=== PATIENT | female | born 1940 | race Caucasian/White ===

== ENCOUNTER → 2017-07-19 11:44 | Outpatient (CLI) | payer MEDICARE, BC, SELFPAY ==
--- NOTE | 2017-07-19 12:01 | CT_ITS ---
CT head/brain wo con HISTORY: ITS.REASON: HEADACHE,DIZZINESS ORDERING PHYSICIAN: Karley Pacheco PATIENT AGE: 76 years COMPARISON: None TECHNIQUE: Axial images obtained without contrast. Brain and bone windows reviewed. All CT scans at the facility use one or more dose reduction, viz: automated exposure control; ma/kV adjustment per patient size (including targeted exams where dose is matched to indication; i.e. head); or iterative reconstruction technique. FINDINGS: No midline shift, mass effect, intracranial hemorrhage, hydrocephalus, or extra-axial fluid collection is evident. Mild involutional changes of age The calvarium has an unremarkable appearance. No mastoid effusion. No sinus air-fluid levels.. IMPRESSION: No acute finding
== END ==
PROVIDERS: PCP Nurse Practitioner Family; Visit Provider Nurse Practitioner Family
DX: R51 Headache (principal); R42 Dizziness and giddiness
CPT/HCPCS: 70450

== ENCOUNTER → 2017-11-15 12:40 | Outpatient (CLI) | payer MEDICARE, BC, SELFPAY | PROVIDERS: Family Provider Nurse Practitioner; PCP Nurse Practitioner Family; Visit Provider Family Medicine | DX: Z71.3 Dietary counseling and surveillance (principal); E11.65 Type 2 diabetes mellitus with hyperglycemia | CPT/HCPCS: 97802 ==

== ENCOUNTER → 2018-05-08 08:19 | Outpatient (CLI) | payer MEDICARE, BC, SELFPAY ==
--- NOTE | 2018-05-08 08:23 | US_ITS ---
US soft tissue head and neck CLINICAL INDICATION: Palpable nodule in left side of neck ITS.REASON: LYMPHADENOPATHY ORDERING PHYSICIAN: Karley Pacheco PATIENT AGE: 77 years Comparison: None FINDINGS: Ultrasound performed of the left aspect of the neck showing no obvious adenopathy or cystic lesions. The carotid artery is noted in the area of the palpable abnormality. The submandibular and parotid glands have an unremarkable appearance IMPRESSION: 1. The carotid artery is at the area of the patient's palpable abnormality. 2. Otherwise negative ultrasound the neck
== END ==
PROVIDERS: PCP Nurse Practitioner Family; Visit Provider Nurse Practitioner Family
DX: R59.0 Localized enlarged lymph nodes (principal)
CPT/HCPCS: 76536

== ENCOUNTER → 2018-05-17 12:29 | Outpatient (CLI) | payer MEDICARE, BC, SELFPAY ==
--- NOTE | 2018-05-17 | CI_ITS ---
Cerebrovascular Exam Indications: 785.9 Bruit. IMPRESSIONS 1. The bilateral vertebral arteries are patent with normal antegrade flow. 2. Study suggests less than 20% stenosis involving the right internal carotid artery. 3. Study suggests less than 20% stenosis involving the left internal carotid artery. 4. Tortuous carotid arteries seen bilaterally. History: Risk factors: Hypertension. Diabetes mellitus. Carotid duplex study. Complete study and Doppler flow study including spectral analysis, color and terrell scale imaging. Height: Height: 157.5cm. Height: 62in. Weight: Weight: 56.2kg. Weight: 123.7lb. Body mass index: BMI: 22.7kg/m^2. Body surface area: BSA: 1.57m^2. Location: Vascular laboratory. Patient status: Outpatient. Tables: Arterial flow: + +--------+--------+ Location V sys V ed + +--------+--------+ Right CCA - proximal 73.8cm/s 10.7cm/s + +--------+--------+ Right CCA - distal 74.9cm/s 15.6cm/s + +--------+--------+ Right ECA 86.8cm/s 10.4cm/s + +--------+--------+ Right ICA - proximal 49.8cm/s 8.5cm/s + +--------+--------+ Right ICA - mid 48.2cm/s 14.9cm/s + +--------+--------+ Right ICA - distal 59.5cm/s 15.4cm/s + +--------+--------+ Right vertebral 61.1cm/s 9.8cm/s + +--------+--------+ Left CCA - proximal 75.4cm/s 11.5cm/s + +--------+--------+ Left CCA - distal 60.8cm/s 12.6cm/s + +--------+--------+ Left ECA 60.7cm/s 8.5cm/s + +--------+--------+ Left ICA - proximal 74.1cm/s 19.3cm/s + +--------+--------+ Left ICA - mid 64.8cm/s 18.9cm/s + +--------+--------+ Left ICA - distal 68.2cm/s 17.4cm/s + +--------+--------+ Left vertebral 35.4cm/s 11.6cm/s + +--------+--------+ Velocity ratios: + + + + + + Right, V sys Right, V ed Left, V sys Left, V ed + + + + + + Max ICA/dist CCA 0.79 0.99 1.22 1.53 + + + + + + (Report amended ) Electronically signed by: Edy Miller [id number]
== END ==
PROVIDERS: PCP Nurse Practitioner Family; Visit Provider Nurse Practitioner Family
DX: R09.89 Other specified symptoms and signs involving the circulatory and respiratory systems (principal)
CPT/HCPCS: 93880

== ENCOUNTER → 2019-11-23 11:30 | Outpatient (CLI) | payer MEDICARE, BC, SELFPAY ==
--- NOTE | 2019-11-23 11:40 | XR_ITS ---
PROCEDURE: XR SHOULDER RT MIN 2V CLINICAL INDICATION: RT SHOULDER PAIN,DECREASED ROM COMPARISON: No exams were available for comparison FINDINGS: Moderate osteoarthritic changes are present at the acromioclavicular joint and glenohumeral joint. No fracture or dislocation. Surgical clips are present in the right axilla. No lytic or blastic change. Other findings:None. 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
== END ==
PROVIDERS: PCP Family Medicine; Visit Provider Nurse Practitioner Family
DX: M25.511 Pain in right shoulder (principal); M25.611 Stiffness of right shoulder, not elsewhere classified
CPT/HCPCS: 73030

== ENCOUNTER → 2020-07-24 15:03 | Outpatient (CLI) | payer MEDICARE, BC, SELFPAY | PROVIDERS: PCP Family Medicine; Visit Provider Nurse Practitioner Family | DX: Z20.822 Contact with and (suspected) exposure to COVID-19 (principal) | CPT/HCPCS: U0003 ==

== ENCOUNTER 2020-09-29 04:38 | Emergency (ER) | payer MEDICARE, BC, SELFPAY ==
[2020-09-29 04:49] VITALS: BP 160/76; PULSE 75; RESP 16; TEMP 36.8; O2SAT 97; BMI 20.5
--- NOTE | 2020-09-29 04:53 | ECG_ITS ---
APPROVED REPORT Exam: Resting ECG HR:75 bpm ECG Measurements Heart Rate 75 AXES QRSd 84 QRS 30 QT 418 T 57 QTc 466 Conclusion Atrial fibrillation Septal infarct, age undetermined Abnormal ECG Electronically signed by : Silvino Dixon MD 10/01/2020 11:50:22
--- NOTE | 2020-09-29 04:57 | CT_ITS ---
PROCEDURE INFORMATION: Exam: CT Abdomen And Pelvis With Contrast Exam date and time: 09/29/2020 4:57 AM Age: 79 years old Clinical indication: Abdominal pain; Flank; Right; Prior surgery; Surgery date: 6+ months; Surgery type: Gb, appendix, tubal ligation, hernia; Additional info: Flank pain/rt side pain urinary frequency TECHNIQUE: Imaging protocol: Computed tomography of the abdomen and pelvis with contrast. Radiation optimization: All CT scans at this facility use at least one of these dose optimization techniques: automated exposure control; mA and/or kV adjustment per patient size (includes targeted exams where dose is matched to clinical indication); or iterative reconstruction. Contrast material: ISOVUE; Contrast volume: 75 ml; Contrast route: IV; COMPARISON: CR XR CHEST PORTABLE 09/29/2020 5:38 AM FINDINGS: Liver: There is a focal lesion seen inferiorly in the right lobe of the liver this demonstrates peripheral nodular enhancement and measures 2.6 x 3.0 cm in diameter. A 2nd lesion in the right lobe measures 1.7 x 2.5 cm in and Ping is homogeneously. Gallbladder and bile ducts: The patient is status post cholecystectomy. Pancreas: Normal. No ductal dilation. Spleen: Normal. No splenomegaly. Adrenal glands: Normal. No mass. Kidneys and ureters: Normal. No hydronephrosis. Stomach and bowel: Moderate stool is seen throughout the colon. Appendix: No evidence of appendicitis. Intraperitoneal space: Unremarkable. No free air. No significant fluid collection. Vasculature: Coronary atherosclerosis is present. Lymph nodes: Unremarkable. No enlarged lymph nodes. Urinary bladder: Unremarkable as visualized. Reproductive: The patient is status post hysterectomy. There is laxity of the pelvic floor. Bones/joints: Unremarkable. No acute fracture. Soft tissues: The patient is status post prior abdominal wall surgery. IMPRESSION: 1. No acute process to explain the patient's right flank pain. 2. There are 2 indeterminate right hepatic lesions 1 is likely a hemangioma the other is indeterminate but could also be a hemangioma, correlation with prior imaging if available is recommended if not recommended and nonemergent MRI is the best test for further characterization of this likely benign lesion. 3. Moderate retained stool throughout the colon. 4. Coronary atherosclerosis.
--- NOTE | 2020-09-29 04:57 | XR_ITS ---
PROCEDURE INFORMATION: Exam: XR Chest Exam date and time: 09/29/2020 4:57 AM Age: 79 years old Clinical indication: Other: Palpatations; Additional info: Palpitations TECHNIQUE: Imaging protocol: XR of the chest. Views: 2 views. COMPARISON: CR CXR CHEST(2 VIEWS-NOT PORTABLE) 04/25/2015 2:53 PM FINDINGS: Lungs: The lungs are hyperinflated consistent with COPD. Pleural spaces: Unremarkable. No pleural effusion. No pneumothorax. Heart/Mediastinum: Heart is prominent. Bones/joints: Unremarkable. Soft tissues: The patient is status post right axillary lymph node dissection. IMPRESSION: Stable exam. Hyperinflation consistent with COPD with mild cardiomegaly.
[2020-09-29 05:19] LABS: Microscopic, Urine URINE MICROSCOPIC (MICROSCOPIC)
[2020-09-29 05:22] LABS: Basophils # 0.1 K/mm3 (0-0.2); Basophils % 0.9 % (0.1-2.0); Eosinophils # 0.1 K/mm3 (0.0-0.4); Eosinophils % 1.5 % (0.1-12.0); Hematocrit 35.1 % (37.0-47.0); Hemoglobin 11.4 g/dL (12.2-16.2); Lymphocytes # 2.1 K/mm3 (0.7-4.5); Lymphocytes % 23.4 % (10-50); Mean Corpuscular HGB Conc 32.4 g/dL (31.8-35.4); Mean Corpuscular Hemoglobin 24.5 pg (27.0-31.2); Mean Corpuscular Volume 75.6 fl (81-99); Mean Platelet Volume 9.6 fl (7.4-10.4); Monocytes # 0.4 K/mm3 (0.1-1.0); Monocytes % 4.6 % (1.7-9.3); Neutrophils # 6.4 K/mm3 (1.8-7.8); Neutrophils % 69.7 % (37.0-80.0); Platelet Count 225 K/mm3 (142-424); Red Blood Count 4.64 M/mm3 (4.20-5.40); Red Cell Distribution Width 17.9 % (11.5-17.5); White Blood Count 9.2 K/mm3 (4.8-10.8)
[2020-09-29 05:23] LABS: Appearance,Urine CLEAR (Clear); Bilirubin,Urine Negative (Negative); Blood, Urine TRACE-I (Negative); Color,Urine YELLOW (Yellow); Glucose,Urine (UA) Negative (Negative); Ketones,Urine Negative (Negative); Leukocyte Esterase,Urine 1+ (Negative); Nitrate,Urine Negative (Negative); Protein,Urine Negative (Negative); Specific Gravity, Urine 1.015 (1.005-1.030); Urobilinogen,Urine 0.2 EU/dl (0.2)
[2020-09-29 05:30] VITALS: BP 171/79; PULSE 68; O2SAT 96
[2020-09-29 05:33] LABS: Amylase 32 U/L (30-110); Anion Gap 11.9 mEq/L (5-15); Blood Urea Nitrogen 15 mg/dl (7-17); Calcium 9.1 mg/dl (8.4-10.2); Carbon Dioxide 23 mmol/L (22.0-30.0); Chloride 104 mmol/L (98-107); Creatinine Clearance Estimated 37 mL/min (50-200); Estimated Glomerular Filt Rate 119 ml/min (>60); GFR (African American) 144 ML/MIN (>60); Glucose 176 mg/dl (74-100); Lipase 69 U/L (23-300); Potassium 3.9 mmoL/L (3.5-5.1); Sodium 135 mmol/L (136-145)
[2020-09-29 05:49] LABS: Troponin I < 0.01 ng/ml (0.00-0.034)
[2020-09-29 05:50] LABS: T4 (Thyroxine) 16.4 ug/dl (5.53-11.0)
[2020-09-29 06:04] LABS: Thyroid Stimulating Hormone 3.08 uIU/mL (0.465-4.68)
[2020-09-29 06:15] LABS: Coronavirus 19, PCR Not Detected (NotDetected); Influenza A, PCR Not Detected (NotDetected); Influenza B, PCR Not Detected (NotDetected)
[2020-09-29 06:19] VITALS: BP 162/89; PULSE 75; RESP 18; O2SAT 100
[2020-09-29 06:30] VITALS: BP 169/87; PULSE 70; RESP 16; O2SAT 98
[2020-09-29 06:34] LABS: C-Reactive Protein 1.1 mg/L (0-4)
--- NOTE | 2020-09-29 06:35 | HMH.EDBACK ---
ED Disposition Clinical Impression: UTI (urinary tract infection) Qualifiers: Urinary tract infection type: site unspecified Hematuria presence: without hematuria Qualified Code(s): N39.0 - Urinary tract infection, site not specified Disposition: Home, Self-Care Condition on Discharge: Good Instructions: DI for Urinary Tract Infection (UTI) Additional Instructions: use meds and see pcp for follow up and culture results Prescriptions: levoFLOXacin [Levaquin 500mg tab] 500 mg PO DAILY #7 tab Transmission Status: Pending to [id number] Referrals: Duke Boland MD [Primary Care Provider] - - Critical Care Critical Care Time: No Attestation: On 09/29/20, the high probability of a clinically significant, sudden or life threatening deterioration of the following system(s) required my full and direct attention, intervention and personal management. The time I documented below is in addition to time spent performing reported procedures but includes the following listed in this critical care notation. Medical Decision Making - Medical Records Medical records reviewed: Yes: I reviewed the patient's medical records. - Reginaldo Inquiry Pt receiving controlled substance: No Vital Signs: 09/29/20 04:49 09/29/20 05:30 Temperature 98.2 F Temperature Source Oral Pulse Rate 68 Pulse Rate [Right Brachial] 75 Respiratory Rate 16 Blood Pressure 171/79 H Blood Pressure [Right Arm] 160/76 H Blood Pressure Mean [Right Arm] 104 Blood Pressure Source [Right Arm] Automatic Cuff Blood Pressure Position [Right Arm] Sitting 02 Sat by Pulse Oximetry 97 96 Oxygen Delivery Method Room Air Room Air - Lab Data Lab results reviewed: Yes: I reviewed the patient's lab results. Lab Results 09/29/20 05:00: WBC 9.2, RBC 4.64, Hgb 11.4 L, Hct 35.1 L, MCV 75.6 L, MCH 24.5 L, MCHC 32.4, RDW 17.9 H, Plt Count 225, MPV 9.6, Neut % (Auto) 69.7, Lymph % (Auto) 23.4, [place] % (Auto) 4.6, Eos % (Auto) 1.5, Baso % (Auto) 0.9, Neut # (Auto) 6.4, Lymph # (Auto) 2.1, [place] # (Auto) 0.4, Eos # (Auto) 0.1, Baso # (Auto) 0.1 09/29/20 05:00: Sodium 135 L, Potassium 3.9, Chloride 104, Carbon Dioxide 23, Anion Gap 11.9, BUN 15, Creatinine 0.50 L, Estimated Creat Clear 37, Estimated GFR 119, Est GFR ( Amer) 144, Glucose 176 H, Calcium 9.1, Troponin I < 0.01, Amylase 32, Lipase 69, TSH 3.08, Thyroxine (T4) 16.4 H 09/29/20 05:00: C-Reactive Protein 1.1 09/29/20 05:05: Urine Color Yellow, Urine Appearance Clear, Urine pH 8.0, Ur Specific [place] 1.015, Urine Protein Negative, Urine Glucose (UA) Negative, Urine Ketones Negative, Urine Blood Trace-i, Urine Nitrate Negative, Urine Bilirubin Negative, Urine Urobilinogen 0.2, Ur Leukocyte Esterase 1+ A, Urine RBC 3-5, Urine WBC 10-20 Result diagrams: 09/29/20 05:00 09/29/20 05:00 Orders (Tests/Meds): ED MEDICATIONS Generic Name Dose Route Start Last Admin Trade Name Freq PRN Reason Stop Dose Admin Sodium Chloride 1,000 mls @ 999 mls/hr 09/29/20 05:15 09/29/20 05:08 Sod Chlor 0.9% 1000ml Bag IV 09/29/20 06:15 999 mls/hr .Q1H1M GIANA Administration Discontinued Medications Generic Name Dose Route Start Last Admin Trade Name Freq PRN Reason Stop Dose Admin Iopamidol 75 ml 09/29/20 06:04 09/29/20 06:10 Iopamidol-370 (76%);100ml Bottle IV 09/29/20 06:05 75 ml ONCE ONE Administration Sodium Chloride 10 ml 09/29/20 06:04 09/29/20 06:10 Sodium Chloride 0.9% 10ml Syr (Rad Only) IV 09/29/20 06:05 10 ml ONCE ONE Administration ORDERS Category Date Time Status ESR [Erythrocyte Sedimentation Rate] Stat Lab 09/29/20 05:00 Received Rapid PCR Covid and Flu A/B Stat Lab 09/29/20 05:00 Received Troponin I Q3H Lab 09/29/20 08:00 Ordered Troponin I Q3H Lab 09/29/20 11:00 Ordered Urine Culture Stat Micro 09/29/20 05:05 Received - Radiology Data #1 Image(s): Chest Image Reviewed: Yes I reviewed the patient's radiology image Prelimi
[2020-09-29 06:37] LABS: Erythrocyte Sedimentation Rate 19 mm/hr (0-30)
[2020-09-29 06:56] VITALS: BP 169/87; PULSE 72; RESP 18; TEMP 36.9; O2SAT 98
== END 2020-09-29 07:06 | disposition home or self-care (01) ==
PROVIDERS: Emergency Provider Emergency Medicine; PCP Family Medicine
DX: N30.00 Acute cystitis without hematuria (principal); Z20.822 Contact with and (suspected) exposure to COVID-19; I25.10 Atherosclerotic heart disease of native coronary artery without angina pectoris; E11.9 Type 2 diabetes mellitus without complications; K21.9 Gastro-esophageal reflux disease without esophagitis; E78.5 Hyperlipidemia, unspecified; I10 Essential (primary) hypertension; E03.9 Hypothyroidism, unspecified; Z79.899 Other long term (current) drug therapy
CPT/HCPCS: 71046; 74177; 80048; 81001; 82150; 83690; 84436; 84443; 84484; 85025; 85651; 86140; 87086; 87088; 87186; 93005; 96365; 96366; 99284; Q9967; U0003

== ENCOUNTER → 2020-10-06 10:32 | Outpatient (CLI) | payer MEDICARE, BC, SELFPAY ==
--- NOTE | 2020-10-06 10:46 | XR_ITS ---
PROCEDURE: XR LUMBAR SPINE MIN 4V CLINICAL INDICATION: RT FLANK PAIN TO R/O COMPRESSION FX COMPARISON: CT CT ABDOMEN PELVIS W CON from 09/29/2020 FINDINGS: There is mild lumbar scoliosis convex left. Multilevel lumbar spondylosis is present. Endplate osteophytes are present at L1-L2 and L3. there is degenerative disc disease at from T12-S1 worse at T12-L1 and L1-L2. There is 3 mm anterolisthesis of L4 on L5 and 3 mm retrolisthesis of L3 on L4 and L2 on L3. No acute fracture or dislocation is evident. Postsurgical changes are present with clips in the right upper quadrant and multiple surgical tacks in the left lower quadrant. There is diffuse vascular calcification. Degenerative changes are present involving both hips.. IMPRESSION: Multilevel lumbar spondylosis as detailed above. No acute fracture Dictated by: Mohit Tam MD 10/06/2020 12:13 Mohit Tam MD in [place] 10/06/2020 12:13
[2020-10-06 11:58] LABS: Blood Urea Nitrogen 14 mg/dl (7-17); Estimated Glomerular Filt Rate 96 ml/min (>60); GFR (African American) 117 ML/MIN (>60)
== END ==
PROVIDERS: Visit Provider Family Medicine
DX: R10.11 Right upper quadrant pain (principal); R10.9 Unspecified abdominal pain
CPT/HCPCS: 36415; 72110; 82565; 84520

== ENCOUNTER → 2020-10-07 17:26 | Outpatient (CLI) | payer MEDICARE, BC, SELFPAY ==
[2020-10-07 17:29] LABS: Adenovirus F 40/41, stool Not Detected (NotDetected); Astrovirus Not Detected (NotDetected); Campylobacter Not Detected (NotDetected); Clostridium Difficile A/B, PCR Not Detected (NotDetected); Cryptosporidium Not Detected (NotDetected); Cyclospora Cayetanesis Not Detected (NotDetected); Entamoeba histolytica Not Detected (NotDetected); Enteroaggregative E coli Not Detected (NotDetected); Enteropathogenic E coli Not Detected (NotDetected); Enterotoxigenic E coli Not Detected (NotDetected); Giardia lamblia Not Detected (NotDetected); Norovirus Not Detected (NotDetected); Plesimonas Shigalloides, PCR Not Detected (NotDetected); Rotavirus A Not Detected (NotDetected); Salmonella, PCR Not Detected (NotDetected); Sapovirus Not Detected (NotDetected); Shiga-like toxin E coli Not Detected (NotDetected); Shigella Enterovasive E coli Not Detected (NotDetected); Vibrio Cholerae Not Detected (NotDetected); Vibrio, PCR Not Detected (NotDetected); Yersinia Entercolitica, PCR Not Detected (NotDetected)
== END ==
PROVIDERS: Visit Provider Nurse Practitioner Family
DX: R19.7 Diarrhea, unspecified (principal)
CPT/HCPCS: 87506

== ENCOUNTER → 2020-10-13 09:33 | Outpatient (CLI) | payer MEDICARE, BC, SELFPAY ==
--- NOTE | 2020-10-13 09:36 | CT_ITS ---
PROCEDURE: CT ABDOMEN PELVIS W CON CLINICAL INDICATION: ABD PAIN Right upper quadrant pain COMPARISON: CT CT ABDOMEN PELVIS W CON from 09/29/2020 TECHNIQUE: IV Contrast: 75ML Isovue 370 Oral Contrast 450ml Redicat Axial images obtained with sagittal and coronal reformats. All CT scans at the facility use one or more dose reduction, viz: automated exposure control, ma/kV adjustment per patient size (including targeted exams where dose is matched to indication, i.e. head), or iterative reconstruction technique. FINDINGS: There is some mild scarring in the left lung base. There is cardiomegaly with coronary artery calcification with multi chamber enlargement. There is a small pericardial effusion with pericardium measuring 11 mm. Prior cholecystectomy with biliary ectasia. The spleen, adrenal glands, pancreas, and kidneys have an unremarkable appearance. Previously noted area of enhancement in the right hepatic lobe laterally and nodular area of enhancement in the right hepatic lobe inferiorly are once again noted. These may be due to hemangiomas and may be better evaluated with MRI. There is a moderate amount of retained colonic feces. No evidence of appendicitis or diverticulitis. Status post hysterectomy. Mild thoracolumbar curvature convex right. Osteoarthritic changes are present in the hips prior abdominal wall surgery. IMPRESSION: Overall no change with no acute finding. No change 2 right hepatic lobe lesion which may be due to hemangiomas. Nonacute findings as described above. Dictated by: Mohit Tam MD 10/14/2020 10:09 Mohit Tam MD in [place] 10/14/2020 10:09
== END ==
PROVIDERS: PCP Family Medicine; Visit Provider Family Medicine
DX: R10.11 Right upper quadrant pain (principal)
CPT/HCPCS: 74177; Q9967

== ENCOUNTER → 2020-11-07 11:00 | Outpatient (CLI) | payer MEDICARE, BC, SELFPAY ==
--- NOTE | 2020-11-07 11:04 | CT_ITS ---
PROCEDURE: CT ABDOMEN WO/W CON CLINICAL HISTORY: UPPER ABD PAIN COMPARISON: CT CT ABDOMEN PELVIS W CON from 09/29/2020 TECHNIQUE: Axial images obtained with sagittal and coronal reformats. All CT scans at the facility use one or more dose reduction, viz: automated exposure control, ma/kV adjustment per patient size (including targeted exams where dose is matched to indication, i.e. head), or iterative reconstruction technique. FINDINGS: There is cardiomegaly. There is mild thickening of the pericardium suggesting small pericardial effusion. Minimal atelectatic or fibrotic changes are present in the left lung base. There is a right breast prosthesis. Coronary artery calcifications Status post cholecystectomy. No biliary dilatation. Peripheral area of enhancement is present in the right hepatic lobe in 2 different areas inferiorly. The largest area measures 3 cm and shows peripheral enhancement which may be due to a hemangioma not significantly changed. The 2nd area of enhancement shows homogeneous enhancement. The spleen, adrenal glands, and pancreas has an unremarkable appearance. No renal or ureteral calculi. No renal mass. No hydronephrosis or ureteral dilatation. No intestinal obstruction or free air. There is a mild amount of retained colonic feces. There is a small amount fluid in the pelvis. The pelvis is incompletely imaged as the exam was performed as an abdomen without and with contrast. Degenerative changes thoracic lumbar junction of the spine. IMPRESSION: 1. No acute finding. 2. Two enhancing lesions of the liver the largest of which may represent a hemangioma not significantly changed measuring approximately 3 cm. The other area is of questionable etiology possibly due to flash filling hemangioma. These areas do not appear significantly changed. Characterization with MRI may be of further value. If that is not performed or the patient is not MRI compatible then three month follow-up is suggested to confirm short term stability. 3. Other nonacute findings as described above Dictated by: Mohit Tam MD 11/10/2020 07:45 Mohit Tam MD in [place] 11/10/2020 07:45
== END ==
PROVIDERS: PCP Family Medicine; Visit Provider Family Medicine
DX: R10.10 Upper abdominal pain, unspecified (principal)
CPT/HCPCS: 74170; Q9967

== ENCOUNTER 2020-11-13 20:05 | Emergency (ER) | payer MEDICARE, BC, SELFPAY ==
[2020-11-13 20:06] VITALS: BP 168/74; PULSE 97; RESP 19; TEMP 36.8; O2SAT 96; BMI 19.3
--- NOTE | 2020-11-13 20:26 | ECG_ITS ---
APPROVED REPORT Exam: Resting ECG HR:86 bpm ECG Measurements Heart Rate 86 AXES RI 192 P 62 QRSd 82 QRS 75 QT 398 T 34 QTc 476 Conclusion Sinus rhythm with premature atrial complexes with aberrant conduction Septal infarct, age undetermined Abnormal ECG Electronically signed by : Silvino Dixon MD 11/14/2020 19:55:59
--- NOTE | 2020-11-13 20:37 | CT_ITS ---
PROCEDURE INFORMATION: Exam: CT Head Without Contrast Exam date and time: 11/13/2020 8:37 PM Age: 79 years old Clinical indication: Speech disturbance; Unspecified; Patient HX: PT having a hard time with words, confusion; Additional info: Word finding difficulties TECHNIQUE: Imaging protocol: Computed tomography of the head without contrast. 3D rendering (Not supervised by radiologist): MIP and/or 3D reconstructed images were created by the technologist. Radiation optimization: All CT scans at this facility use at least one of these dose optimization techniques: automated exposure control; mA and/or kV adjustment per patient size (includes targeted exams where dose is matched to clinical indication); or iterative reconstruction. COMPARISON: HEADWO CT head/brain wo con 07/19/2017 12:04 PM FINDINGS: Brain: Atrophy and chronic small vessel ischemic changes. No hemorrhage. No mass effect or midline shift. Cerebral ventricles: No ventriculomegaly. Paranasal sinuses: Visualized sinuses are unremarkable. No fluid levels. Mastoid air cells: Visualized mastoid air cells are well aerated. Bones/joints: Unremarkable. No acute fracture. Soft tissues: Unremarkable. IMPRESSION: Chronic changes in the brain but no acute intracranial abnormality.
--- NOTE | 2020-11-13 20:37 | CT_ITS ---
PROCEDURE INFORMATION: Exam: CT Angiography Head With Contrast, Arteriography Exam date and time: 11/13/2020 8:37 PM Age: 79 years old Clinical indication: Speech disturbance; Type not specified; Patient HX: PT having a hard time with words, confusion; Additional info: Word finding difficulties TECHNIQUE: Imaging protocol: Computed tomography angiography of the head with contrast. Exam focused on the arteries. 3D rendering (Not supervised by radiologist): MIP and/or 3D reconstructed images were created by the technologist. Radiation optimization: All CT scans at this facility use at least one of these dose optimization techniques: automated exposure control; mA and/or kV adjustment per patient size (includes targeted exams where dose is matched to clinical indication); or iterative reconstruction. Contrast material: ISOVUE 370; Contrast volume: 100 ml; Contrast route: INTRAVENOUS (IV); COMPARISON: CT HEAD/BRAIN WO CON 11/13/2020 9:51 PM FINDINGS: ANTERIOR CIRCULATION: Right internal carotid artery: Unremarkable. Intracranial segment is patent with no significant stenosis. No aneurysm. Right middle cerebral artery: Unremarkable. No occlusion or significant stenosis. No aneurysm. Right anterior cerebral artery: Unremarkable. No occlusion or significant stenosis. No aneurysm. Left internal carotid artery: Unremarkable. Intracranial segment is patent with no significant stenosis. No aneurysm. Left middle cerebral artery: Unremarkable. No occlusion or significant stenosis. No aneurysm. Left anterior cerebral artery: Unremarkable. No occlusion or significant stenosis. No aneurysm. POSTERIOR CIRCULATION: Right vertebral artery: Unremarkable. No occlusion or significant stenosis. No aneurysm. Left vertebral artery: Unremarkable. No occlusion or significant stenosis. No aneurysm. Basilar artery: Unremarkable. No occlusion or significant stenosis. No aneurysm. Right posterior cerebral artery: Unremarkable. No occlusion or significant stenosis. No aneurysm. Left posterior cerebral artery: Unremarkable. No occlusion or significant stenosis. No aneurysm. Brain: No definite mass, mass effect, or midline shift. Cerebral ventricles: No ventriculomegaly. Bones/joints: Unremarkable. No acute fracture. Soft tissues: Unremarkable. IMPRESSION: No large vessel stenosis or occlusion.
--- NOTE | 2020-11-13 20:37 | CT_ITS ---
PROCEDURE INFORMATION: Exam: CT Angiography Neck With Contrast Exam date and time: 11/13/2020 9:53 PM Age: 79 years old Clinical indication: Speech disturbance; Type not specified; Patient HX: PT having a hard time with words, confusion; Additional info: Word finding difficulties TECHNIQUE: Imaging protocol: Computed tomography angiography of the neck with contrast. 3D rendering (Not supervised by radiologist): MIP and/or 3D reconstructed images were created by the technologist. Radiation optimization: All CT scans at this facility use at least one of these dose optimization techniques: automated exposure control; mA and/or kV adjustment per patient size (includes targeted exams where dose is matched to clinical indication); or iterative reconstruction. Contrast material: ISOVUE 370; Contrast volume: 100 ml; Contrast route: INTRAVENOUS (IV); COMPARISON: US CA carotid duplex BI 05/17/2018 1:20 PM FINDINGS: Right common carotid artery: No stenosis. No dissection or occlusion. Right internal carotid artery: No stenosis of the extracranial segment. No dissection or occlusion. Right external carotid artery: No occlusion or stenosis of the origin. Left common carotid artery: No stenosis. No dissection or occlusion. Left internal carotid artery: No stenosis of the extracranial segment. No dissection or occlusion. Left external carotid artery: No occlusion or stenosis of the origin. Right vertebral artery: No stenosis. No dissection or occlusion. Left vertebral artery: No stenosis. No dissection or occlusion. Soft tissues: Normal. No significant soft tissue swelling. Bones/joints: No acute fracture. IMPRESSION: No stenosis or occlusion. REFERENCES: NASCET CRITERIA. The degree of internal carotid artery stenosis is based on NASCET criteria. Normal is no stenosis. Mild is less than 50% stenosis. Moderate is 50-69% stenosis. Severe is 70% to 99% stenosis. Total occlusion is no detectable patent lumen.
[2020-11-13 20:49] VITALS: BMI 19.3
[2020-11-13 21:29] LABS: Basophils # 0.1 K/mm3 (0-0.2); Basophils % 0.7 % (0.1-2.0); Eosinophils # 0.1 K/mm3 (0.0-0.4); Eosinophils % 0.9 % (0.1-12.0); Hematocrit 34.5 % (37.0-47.0); Hemoglobin 10.5 g/dL (12.2-16.2); Lymphocytes # 2.3 K/mm3 (0.7-4.5); Lymphocytes % 27.5 % (10-50); Mean Corpuscular HGB Conc 30.6 g/dL (31.8-35.4); Mean Corpuscular Volume 81.7 fl (81-99); Mean Platelet Volume 10.6 fl (7.4-10.4); Monocytes # 0.3 K/mm3 (0.1-1.0); Neutrophils # 5.6 K/mm3 (1.8-7.8); Neutrophils % 66.9 % (37.0-80.0); Platelet Count 175 K/mm3 (142-424); Red Blood Count 4.22 M/mm3 (4.20-5.40); Red Cell Distribution Width 17.2 % (11.5-17.5); White Blood Count 8.3 K/mm3 (4.8-10.8)
[2020-11-13 21:36] LABS: Alanine Aminotransferase 32 U/L (12-78); Albumin Level 3.7 g/dl (3.5-5.0); Albumin/Globulin Ratio 1.5 (1.1-1.8); Alkaline Phosphatase 55 U/L (38-126); Anion Gap 10.5 mEq/L (5-15); Aspartate Amino Transferase 49 U/L (14-36); Bilirubin,Total 0.5 mg/dl (0.2-1.3); Blood Urea Nitrogen 15 mg/dl (7-17); Calcium 8.9 mg/dl (8.4-10.2); Carbon Dioxide 25 mmol/L (22.0-30.0); Chloride 105 mmol/L (98-107); Creatinine Clearance Estimated 35 mL/min (50-200); Estimated Glomerular Filt Rate 154 ml/min (>60); GFR (African American) 186 ML/MIN (>60); Globulin 2.5 g/dL (1.3-3.2); Glucose 126 mg/dl (74-100); Potassium 3.5 mmoL/L (3.5-5.1); Sodium 137 mmol/L (136-145); Total Protein,Serum 6.2 g/dl (6.3-8.2)
[2020-11-13 21:37] LABS: INR 1.19 (0.9-1.1); Prothrombin Time 13.3 seconds (10.1-12.5)
--- NOTE | 2020-11-13 21:47 | PC.NURSE ---
Pt to rad
--- NOTE | 2020-11-13 22:09 | HMH.EDGENADL ---
ED Disposition Clinical Impression: UTI (urinary tract infection) Qualifiers: Urinary tract infection type: acute cystitis Hematuria presence: with hematuria Qualified Code(s): N30.01 - Acute cystitis with hematuria Disposition: Home, Self-Care Condition on Discharge: Good Additional Instructions: Take the antibiotic for UTI. Return if you develop weakness, vision changes, numbness, worsening memory problems or any other concerns. Follow up with Neurology. Prescriptions: Nitrofurantoin Monohyd/M-Cryst [Macrobid 100 mg Capsule] 100 mg PO BID 7 Days #14 cap Transmission Status: Received by [id number] Referrals: Duke Boland MD [Primary Care Provider] - Gracy Barron MD [Staff Physician] - - Critical Care Critical Care Time: No Attestation: On 11/13/20, the high probability of a clinically significant, sudden or life threatening deterioration of the following system(s) required my full and direct attention, intervention and personal management. The time I documented below is in addition to time spent performing reported procedures but includes the following listed in this critical care notation. Medical Decision Making - Reginaldo Inquiry Pt receiving controlled substance: No Vital Signs: 11/13/20 20:06 11/13/20 22:51 Temperature 98.2 F 98.4 F Temperature Source Oral Temporal Artery Scan Pulse Rate 83 Pulse Rate [Left] 97 H Respiratory Rate 19 20 Blood Pressure 162/82 H Blood Pressure [Left Arm] 168/74 H Blood Pressure Mean [Left Arm] 105 02 Sat by Pulse Oximetry 96 Oxygen Delivery Method Room Air Room Air - Lab Data Lab Results 11/13/20 21:10: WBC 8.3, RBC 4.22, Hgb 10.5 L, Hct 34.5 L, MCV 81.7, MCH 25.0 L, MCHC 30.6 L, RDW 17.2, Plt Count 175, MPV 10.6 H, Neut % (Auto) 66.9, Lymph % (Auto) 27.5, [place] % (Auto) 4.0, Eos % (Auto) 0.9, Baso % (Auto) 0.7, Neut # (Auto) 5.6, Lymph # (Auto) 2.3, [place] # (Auto) 0.3, Eos # (Auto) 0.1, Baso # (Auto) 0.1 11/13/20 21:10: PT 13.3 H, INR 1.19 H 11/13/20 21:10: Sodium 137, Potassium 3.5, Chloride 105, Carbon Dioxide 25, Anion Gap 10.5, BUN 15, Creatinine 0.40 L, Estimated Creat Clear 35, Estimated GFR 154, Est GFR ( Amer) 186, Glucose 126 H, Calcium 8.9, Total Bilirubin 0.5, AST 49 H, ALT 32, Alkaline Phosphatase 55, Total Protein 6.2 L, Albumin 3.7, Globulin 2.5, Albumin/Globulin Ratio 1.5 11/13/20 22:18: Urine Color Yellow, Urine Appearance Clear, Urine pH 7.0, Ur Specific [place] 1.010, Urine Protein Negative, Urine Glucose (UA) Negative, Urine Ketones Negative, Urine Blood Trace-i, Urine Nitrate Negative, Urine Bilirubin Negative, Urine Urobilinogen 0.2, Ur Leukocyte Esterase Negative, Urine RBC Occasional, Urine Bacteria Trace Result diagrams: 11/13/20 21:10 11/13/20 21:10 Orders (Tests/Meds): ED MEDICATIONS Discontinued Medications Generic Name Dose Route Start Last Admin Trade Name Jm PRN Reason Stop Dose Admin Iopamidol 100 ml 11/13/20 22:08 11/13/20 22:09 Iopamidol-370 (76%);100ml Bottle IV 11/13/20 22:09 100 ml ONCE ONE Administration Nitrofurantoin Macrocrystals 100 mg 11/13/20 22:46 11/13/20 22:50 Nitrofurantoin 100mg Capsule PO 11/13/20 22:47 100 mg ONCE ONE Administration Sodium Chloride 50 ml 11/13/20 22:08 11/13/20 22:09 0.9 % Sodium Chloride 50 Ml Vial IV 11/13/20 22:09 50 ml ONCE ONE Administration Sodium Chloride 10 ml 11/13/20 22:08 11/13/20 22:09 Sodium Chloride 0.9% 10ml Syr (Rad Only) IV 11/13/20 22:09 10 ml ONCE ONE Administration Medical Decision Narrative: The patient is a 79 year old female who presents to the ED with word finding difficulties. the patient arrives awake and alert. She is neurologically intact. Her speech is fluid on my exam. No other neurologic deficits. She states she feels like her word finding difficulties have gotten better since onset. The rest of her exam is benign. Labs including CBC, BMP were obtained. UA shows bacteria and +leukocyt
[2020-11-13 22:23] LABS: Microscopic, Urine URINE MICROSCOPIC (MICROSCOPIC)
[2020-11-13 22:24] LABS: Appearance,Urine CLEAR (Clear); Bilirubin,Urine Negative (Negative); Blood, Urine TRACE-I (Negative); Color,Urine YELLOW (Yellow); Glucose,Urine (UA) Negative (Negative); Ketones,Urine Negative (Negative); Leukocyte Esterase,Urine Negative (Negative); Nitrate,Urine Negative (Negative); Protein,Urine Negative (Negative); Urobilinogen,Urine 0.2 EU/dl (0.2)
[2020-11-13 22:35] LABS: Bacteria,Urine Trace /lpf; RBC,Urine Occasional #/hpf (0-3)
[2020-11-13 22:51] VITALS: BP 162/82; PULSE 83; RESP 20; TEMP 36.9; O2SAT 96
== END 2020-11-13 23:02 | disposition home or self-care (01) ==
PROVIDERS: Emergency Provider Emergency Medicine; PCP Family Medicine
DX: N30.00 Acute cystitis without hematuria (principal); B96.5 Pseudomonas (aeruginosa) (mallei) (pseudomallei) as the cause of diseases classified elsewhere; E03.9 Hypothyroidism, unspecified; K21.9 Gastro-esophageal reflux disease without esophagitis; E78.5 Hyperlipidemia, unspecified; I10 Essential (primary) hypertension; Z79.899 Other long term (current) drug therapy
CPT/HCPCS: 70450; 70496; 70498; 80053; 81001; 85025; 85610; 93005; 99283; Q9967

== ENCOUNTER 2021-03-21 10:48 | Emergency (ER) | payer MEDICARE, BC, SELFPAY ==
[2021-03-21 10:55] VITALS: BP 131/89; PULSE 89; RESP 16; TEMP 37.1; O2SAT 96; BMI 17.7
[2021-03-21 11:16] LABS: Apearance,Urine Cloudy (Clear); Bilirubin,Urine 1+ (Negative); Blood, Urine 1+ (Negative); Color,Urine Amber (Yellow); Glucose,Urine (UA) Negative (Negative); Ketones,Urine Negative (Negative); Protein,Urine 2+ (Negative)
[2021-03-21 11:17] LABS: UTC Leukocyte Esterase,Urine 1+ (Negative); UTC Nitrate,Urine Positive (Negative); Urobilinogen,Urine 1 EU/dl (0.2)
--- NOTE | 2021-03-21 11:19 | HMH.EDUTC ---
[facility] [place] [facility] Disposition Clinical Impression: UTI (urinary tract infection) Qualifiers: Urinary tract infection type: acute cystitis Hematuria presence: with hematuria Qualified Code(s): N30.01 - Acute cystitis with hematuria Disposition: Home, Self-Care Condition on Discharge: Good Instructions: DI for Urinary Tract Infection (UTI) Additional Instructions: Increase fluids, water and not soda or tea. Can drink cranberry juice or cranberry extract. White front to back Wear cotton underwear Start antibiotics immediately and make sure you take the full course although you may start to see improvement over the next 48 hours. Be sure to follow-up anytime for new or worsening symptoms in 48 hours for wound urine culture results be sure to let you PCP no recent urine for culture so they can request records and ensure that you have appropriate antibiotic if you are not getting better or getting worse. If symptoms worsen or do not improve return or be seen in the ER. Follow-up with primary care this week Prescriptions: cephALEXin [Cephalexin 500mg Tab] 500 mg PO BID 7 Days #14 tab Transmission Status: Pending to [id number] Referrals: Duke Boland MD [Primary Care Provider] - Time of Disposition: 11:23 Medical Decision Making - Reginaldo Inquiry Pt receiving controlled substance: No Vital Signs: 03/21/21 10:55 Temperature 98.7 F Temperature Source Oral Pulse Rate [Right Brachial] 89 Respiratory Rate 16 Blood Pressure [Right Arm] 131/89 Blood Pressure Mean [Right Arm] 103 Blood Pressure Source [Right Arm] Automatic Cuff Blood Pressure Position [Right Arm] Sitting 02 Sat by Pulse Oximetry 96 - Lab Data Lab Results 03/21/21 11:01: Urine Color Kael[place], Urine Appearance Cloudy, Urine pH 7.0, Ur Specific [place] 1.020, Urine Protein 2+, Urine Glucose (UA) Negative, Urine Ketones Negative, Urine Blood 1+, Urine Nitrate Positive A, Urine Bilirubin 1+ A, Urine Urobilinogen 1, Ur Leukocyte Esterase 1+ A Orders (Tests/Meds): ORDERS Category Date Time Status Urine Culture Stat Micro 03/21/21 11:14 Ordered [facility] [place] HPI - General Chief complaint: Urgent Treatment Center Stated complaint: possible uti Time Seen by Provider: 03/21/21 11:19 Mode of Arrival: Ambulatory Source of Information: Patient Limitations: No Limitations Description of Symptoms (Recalled from Triage Doc. by RN): PATIENT STATES SHE HAS RECENTLY BEEN TREATED FOR UTI BY PCP, BUT STATES SHE IS STILL HAVE PAIN WITH URINATION AND HEMATURIA HEENT Symptoms (Recalled from RN notes): No Resp Symptoms (Recalled from RN notes): No Skin Symptoms (Recalled from RN notes): No MS Symptoms (Recalled from RN notes): No Functional Status (Recalled from RN notes): WNL - History of Present Illness Provider Complaint: 80 yr old female presents for burning with urination, blood in urine, freq and urgency. pt states she was started on microbid on by pcp but she has not seen any improvement. - Related Data Home Medications Medication Instructions Recorded Confirmed Acetaminophen [Tylenol Extra 500 mg PO NEEDED PRN 03/10/19 11/13/20 Strength] Amlodipine Besylate [Amlodipine 5 mg PO DAILY 03/10/19 03/10/19 5mg tab] Anastrozole 1 mg PO DAILY 03/10/19 03/10/19 Apixaban [Eliquis 5mg Tablet] 5 mg PO BID 03/10/19 11/13/20 Ascorbic Acid [Vitamin C 250 mg 250 mg PO DAILY 03/10/19 03/10/19 Tablet Chew] Aspirin [Ecotrin] 325 mg PO DAILY 03/10/19 03/10/19 Cholecalciferol (Vitamin D3) 1,000 unit PO DAILY 03/10/19 11/13/20 [Vitamin D3 1,000 Unit Cap] Fenofibrate 160 mg PO DAILY 03/10/19 11/13/20 Fexofenadine HCl [Pat Allergy] 60 mg PO DAILY 03/10/19 11/13/20 Fish Oil/Dha/Epa [Fish Oil 1,200 1 each PO DAILY 03/10/19 11/13/20 mg Fish Oil] Levothyroxine Sodium 50 mcg PO DAILY 03/10/19 11/13/20 [Levothyroxine 50mcg (0.05mg) Tab] Magnesium Oxide [Magnesium] 400 mg PO DAILY 03/10/19 11/13/20 Metformin HCl 1,000 mg PO BID 03/10/19 11/13/20 Multi
[2021-03-21 11:25] VITALS: BP 131/89; PULSE 89; RESP 16; TEMP 37.1; O2SAT 96
== END 2021-03-21 11:28 | disposition home or self-care (01) ==
PROVIDERS: Emergency Provider Nurse Practitioner Family; PCP Family Medicine
DX: N30.01 Acute cystitis with hematuria (principal); I25.10 Atherosclerotic heart disease of native coronary artery without angina pectoris; E11.9 Type 2 diabetes mellitus without complications; K21.9 Gastro-esophageal reflux disease without esophagitis; I10 Essential (primary) hypertension; E78.5 Hyperlipidemia, unspecified; Z79.899 Other long term (current) drug therapy
CPT/HCPCS: G0463; 81003; 87086; 87088; 87186; 99202

== ENCOUNTER → 2021-04-10 08:28 | Outpatient (CLI) | payer MEDICARE, BC, SELFPAY | PROVIDERS: Visit Provider Internal Medicine Clinical Cardiac Electrophysiology | DX: Z01.818 Encounter for other preprocedural examination (principal); Z11.52 Encounter for screening for COVID-19 | CPT/HCPCS: C9803; U0003; U0005 ==

== ENCOUNTER → 2021-06-18 11:19 | Outpatient (CLI) | payer MEDICARE, BC, SELFPAY | PROVIDERS: PCP Family Medicine; Visit Provider Family Medicine | DX: R19.7 Diarrhea, unspecified (principal) | CPT/HCPCS: 87045; 87493 ==

== ENCOUNTER 2021-07-02 18:31 | Emergency (ER) | payer MEDICARE, BC, SELFPAY ==
[2021-07-02 18:54] VITALS: BP 149/79; PULSE 71; RESP 17; TEMP 36.4; O2SAT 94; BMI 21.1
--- NOTE | 2021-07-02 18:59 | HMH.EDUTC ---
[facility] Clinical Impression: Head injury Qualifiers: Encounter type: initial encounter Qualified Code(s): S09.90XA - Unspecified injury of head, initial encounter Disposition: Still a Patient Condition on Discharge: Fair Referrals: Duke Boland MD [Primary Care Provider] - Medical Decision Making - Reginaldo Inquiry Pt receiving controlled substance: No Reginaldo was queried for this patient: No Vital Signs: 07/02/21 18:54 Temperature 97.6 F Temperature Source Oral Pulse Rate [Left] 71 Respiratory Rate 17 Blood Pressure [Right Arm] 149/79 H Blood Pressure Mean [Right Arm] 102 02 Sat by Pulse Oximetry 94 L Medical Decision Narrative: Due to bruising on forehead and patient currently on Plavix and Eliquis and striking her head on the ground CT cannot be done in the [facility] and recommended transfer to the ED and patient agreed Called ED spoke with Gisele and patient was moved to room 9 [facility] [place]PI - General Stated complaint: AO05/@1500 fall, hit head Time Seen by Provider: 07/02/21 18:59 Mode of Arrival: Ambulatory Source of Information: Patient Limitations: No Limitations Description of Symptoms (Recalled from Triage Doc. by RN): pt states she tripped and fell in the driveway this afternoon. pt states she hit the R side of her forehead. she has a small bruise that is swollen and buldging out. pt states she is on two blood thinners. pt denies LOC HEENT Symptoms (Recalled from RN notes): Yes Resp Symptoms (Recalled from RN notes): No Skin Symptoms (Recalled from RN notes): No MS Symptoms (Recalled from RN notes): No Functional Status (Recalled from RN notes): wnl - History of Present Illness Provider Complaint: Patient states that she tripped in her driveway earlier today and hit her head on the ground States that she tripped over some wire that she had on the ground and she went down fast States that she is not sure what she may have hit her head on States that she scratched up her hands too but they are ok States that she noticed she was having stinging feeling on the right side of her head and she looked in the mirror and noticed she had some bruising, swelling and a scratch there. 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 States that she was worried about it so she came in Denies LOC Denies headache Denies vision difficulty - Related Data Home Medications Medication Instructions Recorded Confirmed Acetaminophen [Tylenol Extra 500 mg PO NEEDED PRN 03/10/19 11/13/20 Strength] Amlodipine Besylate [Amlodipine 5 mg PO DAILY 03/10/19 03/10/19 5mg tab] Anastrozole 1 mg PO DAILY 03/10/19 03/10/19 Apixaban [Eliquis 5mg Tablet] 5 mg PO BID 03/10/19 11/13/20 Ascorbic Acid [Vitamin C 250 mg 250 mg PO DAILY 03/10/19 03/10/19 Tablet Chew] Aspirin [Ecotrin] 325 mg PO DAILY 03/10/19 03/10/19 Cholecalciferol (Vitamin D3) 1,000 unit PO DAILY 03/10/19 11/13/20 [Vitamin D3 1,000 Unit Cap] Fenofibrate 160 mg PO DAILY 03/10/19 11/13/20 Fexofenadine HCl [Pat Allergy] 60 mg PO DAILY 03/10/19 11/13/20 Fish Oil/Dha/Epa [Fish Oil 1,200 1 each PO DAILY 03/10/19 11/13/20 mg Fish Oil] Levothyroxine Sodium 50 mcg PO DAILY 03/10/19 11/13/20 [Levothyroxine 50mcg (0.05mg) Tab] Magnesium Oxide [Magnesium] 400 mg PO DAILY 03/10/19 11/13/20 Metformin HCl 1,000 mg PO BID 03/10/19 11/13/20 Multivit-Min/Iron/Folic/Lutein 1 each PO DAILY 03/10/19 11/13/20 [Centrum Silver Women Tablet] Omeprazole 40 mg PO DAILY 03/10/19 11/13/20 Rosuvastatin Calcium 5 mg PO DAILY 03/10/19 11/13/20 Sotalol HCl [Sotalol] 80 mg PO BID 03/10/19 11/13/20 lisinopriL [Lisinopril 20mg Tab] 20 mg PO DAILY 03/10/19 11/13/20 Previous Rx's Medication Instructions Recorded levoFLOXacin [Levaquin 500mg 500 mg PO DAILY #7 tab 09/29/20 tab] Nitrofurantoin Monohyd/M-Cryst 100 mg PO BI
--- NOTE | 2021-07-02 19:15 | PC.NURSE ---
Pt arrived to ED from [facility]
[2021-07-02 19:16] VITALS: BP 149/79; PULSE 71; RESP 19; TEMP 36.4; O2SAT 95; BMI 23.1
--- NOTE | 2021-07-02 19:22 | HMH.EDFALL ---
ED Disposition Condition on Discharge: Good - Critical Care Critical Care Time: No <Aaron Brito - Last Filed: 07/02/21 19:57> <Erick Walter - Last Filed: 07/02/21 20:46> Clinical Impression: Head injury Qualifiers: Encounter type: initial encounter Qualified Code(s): S09.90XA - Unspecified injury of head, initial encounter Disposition: Home, Self-Care Additional Instructions: call pcp for follow up Referrals: Duke Boland MD [Primary Care Provider] - Attestation: On 07/02/21, the high probability of a clinically significant, sudden or life threatening deterioration of the following system(s) required my full and direct attention, intervention and personal management. The time I documented below is in addition to time spent performing reported procedures but includes the following listed in this critical care notation. Medical Decision Making - Medical Records Medical records reviewed: Yes: I reviewed the patient's medical records. - Reginaldo Inquiry Pt receiving controlled substance: No <Aaron Brito - Last Filed: 07/02/21 19:57> - Lab Data Lab results reviewed: Yes: I reviewed the patient's lab results. - Radiology Data #1 Image(s): Chest, Pelvis Image Reviewed: Yes I have reviewed radiologist's interpretation Preliminary Findings: No Fracture Seen - CT Data CT Scan: Head, C-Spine Time Received: 20:[address] Reviewed: Yes: I have viewed the radiologist's interpretation Preliminary Findings: No Fracture Seen <Erick Walter - Last Filed: 07/02/21 20:46> Vital Signs: 07/02/21 18:54 07/02/21 19:16 Temperature 97.6 F 97.6 F Temperature Source Oral Oral Pulse Rate [Left] 71 71 Respiratory Rate 17 19 Blood Pressure [Right Arm] 149/79 H 149/79 H Blood Pressure Mean [Right Arm] 102 102 Blood Pressure Source [Right Arm] Automatic Cuff Blood Pressure Position [Right Arm] Sitting 02 Sat by Pulse Oximetry 94 L 95 Oxygen Delivery Method Room Air Medical Decision Narrative: stable exam and xrays and will be d/c - fall precautions discussed (Erick Walter) Fall HPI - General Mode of Arrival: Ambulatory Source of Information: Patient Limitations: No Limitations Description of Symptoms (Recalled from ER Triage Doc. by RN): pt states she tripped and fell in the driveway this afternoon. pt states she hit the R side of her forehead. she has a small bruise that is swollen and buldging out. pt states she is on two blood thinners. pt denies LOC - History of Present Illness Onset (ago): hour(s) Fall from: standing Place fall occurred: home Loss of consciousness: none Prolonged down time: no Symptoms prior to fall: none Context: tripped/slipped Severity: mild Associated symptoms (after fall): denies <Aaron Brito - Last Filed: 07/02/21 19:57> - General Source of Information: Relative, Medical Record <SabaErick Itz - Last Filed: 07/02/21 20:46> - General Stated Complaint: AO05/19@1500 fall, hit head Time Seen by Provider: 07/02/21 19:22 - History of Present Illness HPI Narrative: trip and fall outside at home, hit forehead, no loc feels fine now (Aaron Brito) - Related Data Home Medications Medication Instructions Recorded Confirmed Acetaminophen [Tylenol Extra 500 mg PO NEEDED PRN 03/10/19 11/13/20 Strength] Amlodipine Besylate [Amlodipine 5 mg PO DAILY 03/10/19 03/10/19 5mg tab] Anastrozole 1 mg PO DAILY 03/10/19 03/10/19 Apixaban [Eliquis 5mg Tablet] 5 mg PO BID 03/10/19 11/13/20 Ascorbic Acid [Vitamin C 250 mg 250 mg PO DAILY 03/10/19 03/10/19 Tablet Chew] Aspirin [Ecotrin] 325 mg PO DAILY 03/10/19 03/10/19 Cholecalciferol (Vitamin D3) 1,000 unit PO DAILY 03/10/19 11/13/20 [Vitamin D3 1,000 Unit Cap] Fenofibrate 160 mg PO DAILY 03/10/19 11/13/20 Fexofenadine HCl [Pat Allergy] 60 mg PO DAILY 03/10/19 11/13/20 Fish Oil/Dha/Epa [Fish Oil 1,200 1 each PO DAILY 03/10/19 11/13/20 mg Fish Oil] Levothyroxine [place]
--- NOTE | 2021-07-02 19:23 | CT_ITS ---
PROCEDURE INFORMATION: Exam: CT Head Without Contrast Exam date and time: 07/02/2021 7:32 PM Age: 80 years old Clinical indication: Injury or trauma; Fall; Blunt trauma (contusions or hematomas); Additional info: Fall, abrasion to right side of forehead TECHNIQUE: Imaging protocol: Computed tomography of the head without contrast. Radiation optimization: All CT scans at this facility use at least one of these dose optimization techniques: automated exposure control; mA and/or kV adjustment per patient size (includes targeted exams where dose is matched to clinical indication); or iterative reconstruction. COMPARISON: CT HEAD/BRAIN WO CON 11/13/2020 9:51 PM FINDINGS: Brain: Patchy hypoattenuation in the periventricular deep white matter bilaterally. Cerebral ventricles: Enlargement of ventricles, sulci and cisterns bilaterally. Paranasal sinuses: Mucosal thickening within paranasal sinuses but no fluid levels are evident. Mastoid air cells: Visualized mastoid air cells are well aerated. Vasculature: Calcification of carotid siphons and vertebrobasilar arterial systems. Bones/joints: Unremarkable. No acute fracture. Soft tissues: Unremarkable. IMPRESSION: 1. No evidence for acute intracranial hemorrhage, midline shift or mass effect. 2. Cortical atrophy and chronic periventricular microangiopathy.
--- NOTE | 2021-07-02 19:23 | CT_ITS ---
PROCEDURE INFORMATION: Exam: CT Cervical Spine Without Contrast Exam date and time: 07/02/2021 7:32 PM Age: 80 years old Clinical indication: Injury or trauma; Fall; Blunt trauma; Additional info: Fall, abrasion to right side of forehead TECHNIQUE: Imaging protocol: Computed tomography images of the cervical spine without contrast. Radiation optimization: All CT scans at this facility use at least one of these dose optimization techniques: automated exposure control; mA and/or kV adjustment per patient size (includes targeted exams where dose is matched to clinical indication); or iterative reconstruction. COMPARISON: CT HEAD/BRAIN WO CON 11/13/2020 9:51 PM FINDINGS: Tubes, catheters and devices: Pacemaker wires are present within the brachiocephalic vein. Bones/joints: Mild diffuse bone demineralization. Discs/Spinal canal/Neural foramina: Uncovertebral hypertrophy and degenerative facet arthropathy result in multilevel foraminal stenosis. Brain: Cortical atrophy of the brain parenchyma. Sinuses: Minimal mucosal thickening within paranasal sinuses. No fluid levels are evident. Lungs: Slight scarring of the lung apices. Soft tissues: Unremarkable. IMPRESSION: 1. No evidence of acute fracture or spondylolisthesis is identified on CT of cervical spine. 2. Uncovertebral hypertrophy and degenerative facet arthropathy result in multilevel foraminal stenosis. 3. No central canal stenosis is detected.
--- NOTE | 2021-07-02 19:48 | XR_ITS ---
PROCEDURE INFORMATION: Exam: XR Chest Exam date and time: 07/02/2021 7:51 PM Age: 80 years old Clinical indication: Injury or trauma; Fall; Blunt trauma (contusions or hematomas); Prior surgery TECHNIQUE: Imaging protocol: XR of the chest. Views: 1 view. COMPARISON: CR XR CHEST 2V 09/29/2020 5:38 AM FINDINGS: Tubes, catheters and devices: Left subclavian pacemaker with distal wires overlying right atrium and right ventricle. Lungs: Unremarkable. No consolidation. Pleural spaces: Meniscus left lateral costophrenic angle. Heart/Mediastinum: Heart is enlarged. Bones/joints: Rotoscoliosis, degenerative spondylosis and facet arthropathy within the spine. Osteopenia. Acromioclavicular arthropathy. Slight meniscus in the right lung base. Soft tissues: Numerous metallic clips of the right axilla with surgical absence of the right breast. IMPRESSION: 1. Left greater than right pleural effusions. 2. Cardiomegaly.
--- NOTE | 2021-07-02 19:48 | XR_ITS ---
PROCEDURE INFORMATION: Exam: XR Pelvis Exam date and time: 07/02/2021 7:51 PM Age: 80 years old Clinical indication: Injury or trauma; Fall; Blunt trauma (contusions or hematomas); Bilateral; Hip TECHNIQUE: Imaging protocol: XR pelvis. Views: 1 or 2 view. COMPARISON: CT ABDOMEN PELVIS W CON 10/13/2020 11:26 AM FINDINGS: Tubes, catheters and devices: Retention sutures are identified in the left anterior lower abdominopelvic wall. Bones/joints: Degenerative spondylosis, rotoscoliosis and facet arthropathy are identified within the spine. Osteophytosis and eburnation of the sacroiliac joints and hips. Diffuse bone demineralization. No evidence of acute displaced cortical disruption or dislocation. Soft tissues: Unremarkable. Gastrointestinal tract: Nonspecific bowel gas pattern. IMPRESSION: No acute fracture is identified.
[2021-07-02 20:47] VITALS: BP 147/75; PULSE 70; RESP 18; TEMP 36.4; O2SAT 95
== END 2021-07-02 20:49 | disposition home or self-care (01) ==
LOC: UTC 18:38 → ER 19:14
PROVIDERS: Emergency Provider Emergency Medicine; PCP Family Medicine
DX: S09.90XA Unspecified injury of head, initial encounter (principal); I10 Essential (primary) hypertension; I25.10 Atherosclerotic heart disease of native coronary artery without angina pectoris; K21.9 Gastro-esophageal reflux disease without esophagitis; E78.5 Hyperlipidemia, unspecified; E03.9 Hypothyroidism, unspecified; E11.9 Type 2 diabetes mellitus without complications; M19.90 Unspecified osteoarthritis, unspecified site; J32.9 Chronic sinusitis, unspecified; K57.92 Diverticulitis of intestine, part unspecified, without perforation or abscess without bleeding; Z79.01 Long term (current) use of anticoagulants; Z79.1 Long term (current) use of non-steroidal anti-inflammatories (NSAID); Z79.84 Long term (current) use of oral hypoglycemic drugs; Z79.899 Other long term (current) drug therapy; Z88.0 Allergy status to penicillin; Z88.1 Allergy status to other antibiotic agents; Z88.3 Allergy status to other anti-infective agents; Z88.5 Allergy status to narcotic agent; Z88.8 Allergy status to other drugs, medicaments and biological substances; Z85.3 Personal history of malignant neoplasm of breast; W01.10XA Fall on same level from slipping, tripping and stumbling with subsequent striking against unspecified object, initial encounter
CPT/HCPCS: 70450; 71045; 72125; 72170; 99285

== ENCOUNTER → 2021-07-14 11:04 | Outpatient (CLI) | payer MEDICARE, BC, SELFPAY ==
--- NOTE | 2021-07-14 11:11 | XR_ITS ---
FINAL REPORT CLINICAL HISTORY: SOB COMPARISON: September 29, 2020 FINDINGS: Cardiomegaly is noted. A new left subclavian pacemaker is present. The lungs are hyperinflated consistent with COPD. There are new small bilateral pleural effusions, left greater than right. There is no pneumothorax. The bony thorax is intact. IMPRESSION: Small bilateral effusions, left greater than right. Reviewed, Interpreted and Dictated by García Moss III, MD Transcribed by Josephine Bridges Authenticated by García Moss III, MD on 07/14/2021 01:37:11 PM [facility]
--- NOTE | 2021-07-14 11:11 | XR_ITS ---
FINAL REPORT CLINICAL HISTORY: PAIN FROM A FALL 1 WEEK AGO FINDINGS: THORACIC SPINE Three views were obtained. There is no acute fracture. There is no malalignment. There is dextroscoliosis centered at the thoracolumbar junction. There are moderate degenerative changes with osteophytes. There is no soft tissue abnormality. IMPRESSION: Degenerative change with no acute bony abnormality. LUMBAR SPINE Five views were obtained. There is no acute fracture. There is no malalignment. There is levoscoliosis. There is mild to moderate degenerative change. There are moderate vascular calcifications. There are postoperative changes in the right abdomen and left pelvis. IMPRESSION: Degenerative change with no acute bony abnormality. Reviewed, Interpreted and Dictated by García Moss III, MD Transcribed by Josephine Bridges Authenticated by García Moss III, MD on 07/14/2021 01:37:[address] [facility]
== END ==
PROVIDERS: PCP Family Medicine; Visit Provider Family Medicine
DX: R06.02 Shortness of breath (principal); M54.6 Pain in thoracic spine; M54.50 Low back pain, unspecified
CPT/HCPCS: 71046; 72084

== ENCOUNTER → 2021-09-22 10:46 | Outpatient (CLI) | payer MEDICARE, BC, SELFPAY ==
[2021-09-22 11:31] LABS: Troponin I < 0.01 ng/ml (0.00-0.034)
== END ==
PROVIDERS: PCP Family Medicine; Visit Provider Family Medicine
DX: I48.91 Unspecified atrial fibrillation (principal)
CPT/HCPCS: 36415; 84484

== ENCOUNTER 2022-01-03 10:50 | Emergency (ER) | payer MEDICARE, BC, SELFPAY ==
--- NOTE | 2022-01-03 13:07 | EXP.UTC ---
Discharge Plan Disposition Patient Disposition: Home, Self-Care Condition: Good Prescriptions Prescriptions: New phenazopyridine [Pyridium] 200 mg tablet 200 mg PO Q8H 2 Days Qty: 6 0RF nitrofurantoin monohyd/m-cryst [Macrobid] 100 mg Capsule 100 mg PO BID Qty: 10 0RF Rx Instructions: must administer with a meal/food No Action anastrozole 1 MG tablet 1 mg PO DAILY fexofenadine 60 MG tablet 60 mg PO DAILY sotalol 80 MG tablet 80 mg PO BID lisinopril 20 MG tablet 20 mg PO DAILY amlodipine 5 MG tablet 5 mg PO DAILY omeprazole 40 MG capsule,delayed release(DR/EC) 40 mg PO DAILY acetaminophen 500 MG tablet 500 mg PO NEEDED PRN (Reason: As Needed For Fever Or Pain) aspirin 325 MG tablet,delayed release (DR/EC) 325 mg PO DAILY levothyroxine 50 MCG tablet 50 mcg PO DAILY cholecalciferol (vitamin D3) 1,000 UNIT capsule 1,000 unit PO DAILY ascorbic acid-ascorbate sodium 250 MG tablet,chewable 250 mg PO DAILY rosuvastatin 5 MG tablet 5 mg PO DAILY fish oil-dha-epa 1 EACH capsule 1 each PO DAILY fenofibrate 160 MG tablet 160 mg PO DAILY jxybqmhd-lpa-ggkp-FA-lutein 1 EACH tablet 1 each PO DAILY metformin 500 MG tablet 1,000 mg PO BID apixaban 5 MG tablet 5 mg PO BID magnesium oxide 400 MG tablet 400 mg PO DAILY nitrofurantoin monohyd/m-cryst 100 MG capsule 100 mg PO BID 7 Days Qty: 14 0RF levofloxacin 500 MG tablet 500 mg PO DAILY Qty: 7 0RF cephalexin 500 MG tablet 500 mg PO BID 7 Days Qty: 14 0RF Referrals Follow up/Referrals: Duke Boland MD [Primary Care Provider] - See instructions Activity Restrictions/Add. Instructions Additional Instructions/Restrictions: Drink plenty of fluids. Take tylenol for pain or fever. Take the medications as directed. Follow up with your regular doctor. GO TO THE ER FOR ANY WORSENING SYMPTOMS The pyridium will make your urine turn orange, this is an expected side effect. It will stain your clothes if it comes into contact with them. We will culture the urine. That will tell what bacteria is causing your infection and which antibiotics will treat it best. Sometimes the first antibiotic we prescribe turns out to not work against different bacteria. So, make sure you follow up within 3 days if you are not getting better. Clinical Impressions Clinical Impression: UTI (urinary tract infection) Discharge ED Provider: Kareem Randall [facility] General Stated complaint: burning when urination Time Seen by Provider: 01/03/22 13:07 History of Present Illness Provider Complaint: She states that for the past 2 days she has had low back pain and dysuria and urinary frequency. Related Data Home Medications Medication Instructions Recorded Confirmed acetaminophen 500 mg tablet 500 mg PO NEEDED PRN As Needed 03/10/19 11/13/20 For Fever Or Pain amlodipine 5 mg tablet 5 mg PO DAILY HTN 03/10/19 03/10/19 anastrozole 1 mg tablet 1 mg PO DAILY CHEMO 03/10/19 03/10/19 apixaban 5 mg tablet 5 mg PO BID Blood thinner 03/10/19 11/13/20 ascorbic acid-ascorbate sodium 250 mg PO DAILY Supplement 03/10/19 03/10/19 (vitamin C) 250 mg chewable tablet aspirin 325 mg tablet,delayed 325 mg PO DAILY HEART HEALTH 03/10/19 03/10/19 release cholecalciferol (vitamin D3) 25 1,000 unit PO DAILY Supplement 03/10/19 11/13/20 mcg (1,000 unit) capsule fenofibrate 160 mg tablet 160 mg PO DAILY Cholesterol 03/10/19 11/13/20 fexofenadine 60 mg tablet 60 mg PO DAILY ALLEREGIES 03/10/19 11/13/20 fish oil-dha-epa 1,200 mg-144 1 each PO DAILY Supplement 03/10/19 11/13/20 mg-216 mg capsule levothyroxine 50 mcg tablet 50 mcg PO DAILY THYROID 03/10/19 11/13/20 lisinopril 20 mg tablet 20 mg PO DAILY HTN 03/10/19 11/13/20 magnesium oxide 400 mg PO DAILY Supplement 03/10/19 11/13/20 metformin 500 mg tablet 1,000 mg PO BID DM 03/10/19
[2022-01-03 13:09] VITALS: BP 140/60; PULSE 61; RESP 15; TEMP 36.7; O2SAT 96; BMI 17.9
[2022-01-03 13:26] VITALS: BP 140/60; PULSE 61; RESP 15; TEMP 36.7
[2022-01-03 13:27] LABS: Apearance,Urine Clear (Clear); Bilirubin,Urine Negative (Negative); Blood, Urine 1+ (Negative); Color,Urine Yellow (Yellow); Glucose,Urine (UA) Negative (Negative); Ketones,Urine Negative (Negative); Protein,Urine Negative (Negative); UTC Leukocyte Esterase,Urine 1+ (Negative); UTC Nitrate,Urine Negative (Negative); Urobilinogen,Urine 0.2 EU/dl (0.2)
== END 2022-01-03 13:27 | disposition home or self-care (01) ==
PROVIDERS: Emergency Provider Nurse Practitioner Family; PCP Family Medicine
DX: N39.0 Urinary tract infection, site not specified (principal); M54.50 Low back pain, unspecified; R50.9 Fever, unspecified; Z79.01 Long term (current) use of anticoagulants; Z79.82 Long term (current) use of aspirin; Z79.84 Long term (current) use of oral hypoglycemic drugs; Z79.899 Other long term (current) drug therapy; Z88.0 Allergy status to penicillin; Z88.1 Allergy status to other antibiotic agents; Z88.3 Allergy status to other anti-infective agents; Z88.5 Allergy status to narcotic agent; Z88.8 Allergy status to other drugs, medicaments and biological substances
CPT/HCPCS: 81003; 87086; 87088; 87186; 99213; G0463

== ENCOUNTER 2023-09-14 10:40 | Outpatient (CLI) | payer MEDICARE, SELFPAY ==
--- NOTE | 2023-09-14 10:51 | XR_ITS ---
FINAL REPORT TECHNIQUE: 5 views CLINICAL HISTORY: SCIATIC NERVE PAIN COMPARISON: None FINDINGS: There is no fracture present. There is moderate degenerative narrowing of the T12-L1 and L1-2 discs. Postoperative changes present in the left anterior pelvic wall of a hernia repair. There is mild anterolisthesis of L4 on L5 and mild posterior translation of L3 on L4. No acute bony abnormality is identified. Vascular calcifications are present. IMPRESSION: No acute process. Degenerative change as described above. Reviewed, Interpreted and Dictated by Haroon Harris MD Transcribed by Stacy Mehta Authenticated and [facility]
--- NOTE | 2023-09-14 10:52 | XR_ITS ---
FINAL REPORT CLINICAL HISTORY: SCIATIC HIP PAIN COMPARISON: None FINDINGS: RIGHT HIP 3 views of the right hip demonstrate no acute fracture or dislocation. There is advanced degenerative change with subchondral sclerosis and osteophytes involving the right hip. The visualized bony structures are well aligned. Postsurgical changes of anterior wall hernia repair are seen overlying the pelvis. IMPRESSION: Advanced degenerative change with subchondral sclerosis and osteophytes of the right hip. Reviewed, Interpreted and Dictated by Haroon Harris MD Transcribed by Stacy Mehta Authenticated and . [facility]
== END 2023-09-14 23:59 | disposition home or self-care (01) ==
LOC: RAD 10:43
PROVIDERS: PCP Family Medicine; Visit Provider Family Medicine
DX: M54.30 Sciatica, unspecified side (principal)
CPT/HCPCS: 72110; 73502

== ENCOUNTER 2023-12-06 13:00 | Outpatient (RCR) | payer MEDICARE, BC, SELFPAY | END 2023-12-06 23:59 | disposition home or self-care (01) | LOC: PT 13:00 | PROVIDERS: Visit Provider Anesthesiology Pain Medicine | DX: M25.551 Pain in right hip (principal); M25.552 Pain in left hip | CPT/HCPCS: 97110; 97163; 97530 ==

== ENCOUNTER 2024-02-18 11:18 | Emergency (ER) | payer MEDICARE, BC, SELFPAY ==
[2024-02-18 11:50] VITALS: BP 142/48; PULSE 68; RESP 19; TEMP 36.8; O2SAT 99; BMI 20.4
[2024-02-18 11:58] LABS: Apearance,Urine Cloudy (Clear); Color,Urine Dark Yellow (Yellow); PH,Urine 7.5 (5.0-8.5)
[2024-02-18 11:59] LABS: Bilirubin,Urine Negative (Negative); Blood, Urine 1+ (Negative); Glucose,Urine (UA) Negative (Negative); Ketones,Urine Negative (Negative); Protein,Urine Negative (Negative); UTC Leukocyte Esterase,Urine Negative (Negative); UTC Nitrate,Urine Negative (Negative); Urobilinogen,Urine 0.2 EU/dl (0.2)
--- NOTE | 2024-02-18 12:11 | EXP.UTC ---
Discharge Plan Disposition Patient Disposition: Home, Self-Care Condition: Good Prescriptions Prescriptions: New cephalexin 500 mg capsule 500 mg PO BID 5 Days Qty: 10 0RF No Action anastrozole 1 MG tablet 1 mg PO DAILY fexofenadine 60 MG tablet 60 mg PO DAILY sotalol 80 MG tablet 80 mg PO BID lisinopril 20 MG tablet 20 mg PO DAILY amlodipine 5 MG tablet 5 mg PO DAILY omeprazole 40 MG capsule,delayed release(DR/EC) 40 mg PO DAILY acetaminophen 500 MG tablet 500 mg PO NEEDED PRN (Reason: As Needed For Fever Or Pain) aspirin 325 MG tablet,delayed release (DR/EC) 325 mg PO DAILY levothyroxine 50 MCG tablet 50 mcg PO DAILY cholecalciferol (vitamin D3) 1,000 UNIT capsule 1,000 unit PO DAILY ascorbic acid-ascorbate sodium 250 MG tablet,chewable 250 mg PO DAILY rosuvastatin 5 MG tablet 5 mg PO DAILY fish oil-dha-epa 1 EACH capsule 1 each PO DAILY fenofibrate 160 MG tablet 160 mg PO DAILY nqinuvvj-sew-hbip-FA-vit K-lut 1 EACH tablet 1 each PO DAILY metformin 500 MG tablet 1,000 mg PO BID apixaban 5 MG tablet 5 mg PO BID magnesium oxide 400 MG tablet 400 mg PO DAILY nitrofurantoin monohyd/m-cryst 100 MG capsule 100 mg PO BID 7 Days Qty: 14 0RF levofloxacin 500 MG tablet 500 mg PO DAILY Qty: 7 0RF cephalexin 500 MG tablet 500 mg PO BID 7 Days Qty: 14 0RF phenazopyridine [Pyridium] 200 mg tablet 200 mg PO Q8H 2 Days Qty: 6 0RF nitrofurantoin monohyd/m-cryst [Macrobid] 100 mg Capsule 100 mg PO BID Qty: 10 0RF Rx Instructions: must administer with a meal/food spironolactone 25 mg tablet 25 mg PO DAILY Patient Comments: TAKE 1/2 (ONE-HALF) TABLET BY MOUTH ONCE DAILY Referrals Follow up/Referrals: Duke Boland MD [Primary Care Provider] - See instructions Activity Restrictions/Add. Instructions Additional Instructions/Restrictions: *Increase fluids. Water not Soda or Tea *Start antibiotic immediately and be sure to take as ordered for the FULL length of time although you should start to see improvement over the next 48 hours *Be SURE to follow up anytime for new or worsening symptoms with your family doctor. AND in 48 hours for urine culture results with your family doctor, if you do not have a doctor then you may call back to the [facility] for urine culture results and further treatment. We do recommend that you choose and establish care with a Primary Care Physician. ?AND follow up with them ?in 10-14 days to repeat UA to ensure infection is resolved and blood no longer present *Be sure to let your PCP know that we sent urine cultures from the [facility] so they can follow up to ensure that you area the on the correct antibiotic Call your doctor office and make appointment for 48 hours (2 days from today) ?to follow up and get the results of your urine culture and further treatment Clinical Impressions Clinical Impression: UTI (urinary tract infection) Instructions Patient Instructions: DI for Urinary Tract Infection (UTI), Urinary Tract Infection, Cephalexin Print Language Print Language: Romansh Discharge ED Provider: Margarita Garcia [facility] HPI General Stated complaint: uti Mode of Arrival: Ambulatory Source of Information: Patient Limitations: No Limitations Time Seen by Provider: 02/18/24 12:11 Description of Symptoms (Recalled from Triage Doc. by RN): PATIENT C/O TENDERNESS TO LEFT GROIN AREA THAT STARTED THIS MORNING HEENT Symptoms (Recalled from RN notes): No Resp Symptoms (Recalled from RN notes): No Skin Symptoms (Recalled from RN notes): No MS Symptoms (Recalled from RN notes): No Functional Status (Recalled from RN notes): WNL History of Present Illness Provider Complaint: Patient states that she woke up this morning with discomfort and burning with urination States that she has a hx of UTI and she was worried she may be getting one so she came out before the bad weather was suppose to hit to get something for it Related Data Home Medications ?Medication ?Instructions ?Recorded ?Confirmed acetaminophen 500 mg tablet 500 mg PO NEEDED PRN As Needed 03/10/19 11/13/20 For Fever Or Pain amlodipine 5 mg tablet 5 mg PO DAILY HTN 03/10/19 03/10/19 anastrozole 1 mg tablet 1 mg PO DAILY CHEMO 03/10/19 03/10/19 apixaban 5 mg tablet 5 mg PO BID Blood thinner 03/10/19 11/13/20 ascorbic acid-ascorbate sodium 250 mg PO DAILY Supplement 03/10/19 03/10/19 (vitamin C) 250 mg chewable tablet aspirin 325 mg tablet,delayed 325 mg PO DAILY HEART HEALTH 03/10/19 03/10/19 release cholecalciferol (vitamin D3) 25 1,000 unit PO DAILY Supplement 03/10/19 11/13/20 mcg (1,000 unit) capsule fenofibrate 160 mg tablet 160 mg PO DAILY Cholesterol 03/10/19 11/13/20 fexofenadine 60 mg tablet 60 mg PO DAILY ALLEREGIES 03/10/19 11/13/20 fish oil-dha-epa 1,200 mg-144 1 each PO DAILY Supplement 03/10/19 11/13/20 mg-216 mg capsule levothyroxine 50 mcg tablet 50 mcg PO DAILY THYROID 03/10/19 11/13/20 lisinopril 20 mg tablet 20 mg PO DAILY HTN 03/10/19 11/13/20 magnesium oxide 400 mg PO DAILY Supplement 03/10/19 11/13/20 metformin 500 mg tablet 1,000 mg PO BID DM 03/10/19 11/13/20 bokhycrm-fysu-rlic 8 mg-folic 400 1 each PO DAILY Supplement 03/10/19 11/13/20 mcg-K 50 mcg-lutein 300 mcg tablet omeprazole 40 mg capsule,delayed 40 mg PO DAILY GERD 03/10/19 11/13/20 release rosuvastatin 5 mg tablet 5 mg PO DAILY Cholesterol 03/10/19 11/13/20 sotalol 80 mg tablet 80 mg PO BID CAD 03/10/19 11/13/20 spironolactone 25 mg tablet 25 mg PO DAILY 02/18/24 02/18/24 Previous Rx's ?Medication ?Instructions ?Recorded levofloxacin 500 mg tablet 500 mg PO DAILY #7 tabs 09/29/20 nitrofurantoin 100 mg PO BID 7 days #14 caps 11/13/20 monohydrate/macrocrystals 100 mg capsule cephalexin 500 mg tablet 500 mg PO BID 7 days #14 tabs 03/21/21 nitrofurantoin 100 mg PO BID #10 caps 01/03/22 monohydrate/macrocrystals 100 mg capsule (Macrobid) phenazopyridine 200 mg tablet 200 mg PO Q8H 2 days #6 tabs 01/03/22 (Pyridium) cephalexin 500 mg capsule 500 mg PO BID 5 days #10 caps 02/18/24 Allergies Allergy/AdvReac Type Severity Reaction Status Date / Time amoxicillin Allergy Verified 01/03/22 13:11 azithromycin Allergy Verified 01/03/22 13:11 codeine Allergy Verified 01/03/22 13:11 guaifenesin Allergy Verified 01/03/22 13:11 Penicillins Allergy Verified 01/03/22 13:11 Worker's Comp Is this a Worker's Comp case?: No [facility] Disclaimer: The information contained in this section may have been updated after the patient was seen, as this information can be updated by other users. Social History Smoking Status: Never smoker alcohol intake: never current occupational status: retired Travel in the last 8 weeks: None household members: spouse Have you lived/traveled outside [place] in past 30 days?: No Contact w/someone who lives/traveled outside [place] past 30 days?: No Exposure to someone with infectious disease in past 14 days?: No Do you have a fever (greater than 100.4 F or 38 C)?: No Have you tested positive for COVID-19: No Exposed to someone with COVID-19 in past 14 days?: No Do you have a sore throat?: No Do you have a cough?: No Do you have any weakness?: No Do you have any diarrhea?: No Are you experiencing any unusual bleeding?: No Do you have any muscle aches/pain?: No Do you have any abdominal pain?: No Are you experiencing loss of taste or smell?: No ROS Obtained: Yes All systems reviewed & no additional complaints except as documented and Yes Systems reviewed as appropriate & no additional complaints except as documented Constitutional Constitutional: Reports system reviewed and no additional complaints, except as documented, Reports as per HPI, Denies body ache, Denies chills, Denies fever(s) and Denies headache(s) ENT Ears, Nose, Mouth, and Throat: Reports system reviewed and no additional complaints, except as documented, Reports as per HPI and Denies headache(s) Cardiovascular Cardiovascular: Reports system reviewed and no additional complaints, except as documented and Reports as per HPI Respiratory Respiratory: Reports system reviewed and no additional complaints, except as documented and Reports as per HPI Gastrointestinal Gastrointestingal: Reports system reviewed and no additional complaints, except as documented and as per HPI Genitourinary Female Genitourinary: Reports system reviewed and no additional complaints, except as documented, Reports as per HPI, Reports dysuria, Reports urinary frequency and Reports urinary urgency Musculoskeletal Musculoskeletal: Reports system reviewed and no additional complaints, except as documented and Reports as per HPI Integumentary/Breasts Skin/Breast: Reports system reviewed and no additional complaints, except as documented and Reports as per HPI Neurologic Neurologic: Denies headache(s) Physical Exam General General appearance: alert and in no apparent distress ENT ENT exam: Present mucous membranes moist Chest Chest inspection: Present normal inspection; Absent symmetric chest wall rise or tenderness Respiratory Respiratory exam: Present normal lung sounds bilaterally; Absent respiratory distress or wheezes Cardiovascular Cardiovascular exam: Present regular rate, normal rhythm and normal heart sounds Abdominal Exam Abdominal exam: Present soft and normal bowel sounds; Absent distention, tenderness or guarding Neurological Exam Neurological exam: Present alert, oriented X3 and normal gait Medical Decision Making Medical Records Screening: Per USPSTF and CDC recommendations, given the prevalence of disease in our region, it is our hospital?s policy to screen for HIV and viral Hepatitis for all patients aged 18 and over and those with ongoing risk factors. Reginaldo Inquiry Pt receiving controlled substance: No Reginaldo was queried for this patient: No Vital Signs: 02/18/24 11:50 Temperature 98.2 F Temperature Source Oral Pulse Rate [Left Brachial] 68 Respiratory Rate 19 Blood Pressure [Left Arm] 142/48 H Blood Pressure Mean [Left Arm] 79 Blood Pressure Source [Left Arm] Automatic Cuff Blood Pressure Position [Left Arm] Sitting 02 Sat by Pulse Oximetry 99 Oxygen Delivery Method Room Air Lab Data Lab results reviewed: Yes I reviewed the patient's lab results. Lab Results 02/18/24 11:57: Urine Color Dark yellow, Urine Appearance Cloudy, Urine pH 7.5, Ur Specific De[place] 1.020, Urine Protein Negative, Urine Glucose (UA) Negative, Urine Ketones Negative, Urine Blood 1+, Urine Nitrate Negative, Urine Bilirubin Negative, Urine Urobilinogen 0.2, Ur Leukocyte Esterase Negative Orders (Tests/Meds): ORDERS Category Date Time Status Urine Culture Stat Micro 02/18/24 11:40 Received Medical Decision Narrative: Antoni is allergic to PCN and Amoxicillin but has taken Cephalexin in Nov without complications or reactions
[2024-02-18 12:27] VITALS: BP 142/48; PULSE 68; RESP 19; TEMP 36.8; O2SAT 99
== END 2024-02-18 12:33 | disposition home or self-care (01) ==
PROVIDERS: Emergency Provider Nurse Practitioner; PCP Family Medicine
DX: N39.0 Urinary tract infection, site not specified (principal)
CPT/HCPCS: 81003; 87086; 99213; G0381

== ENCOUNTER 2024-05-07 15:17 | Outpatient (CLI) | payer MEDICARE, BC, SELFPAY ==
--- NOTE | 2024-05-07 15:22 | XR_ITS ---
FINAL REPORT CLINICAL HISTORY: chest discomfort since last week COMPARISON: 07/14/2021 FINDINGS: 2 views of the chest were obtained . Left pacemaker is unchanged. The heart is normal in size. The mediastinum is within normal limits. There is emphysema. The lungs are otherwise clear. There is no pneumothorax. Osseous structures are unremarkable. IMPRESSION: No acute cardiopulmonary process. Reviewed, Interpreted and Dictated by Susan Sawyer MD Transcribed by Martita Nelson Authenticated and [facility]
== END 2024-05-07 23:59 | disposition home or self-care (01) ==
LOC: RAD 15:19
PROVIDERS: PCP Nurse Practitioner; Visit Provider Nurse Practitioner
DX: R07.89 Other chest pain (principal)
CPT/HCPCS: 71046